=== PATIENT | female | born 1940 | race Caucasian/White ===

== ENCOUNTER 2017-03-13 08:19 | Inpatient (IN) ==
--- NOTE | 2017-03-12 20:50 | Discharge Summary ---
<Yamel Bishop - Last Filed: 03/12/17 20:48> Date of Encounter: 03/12/17 - Discharge Diagnosis (1) Arthritis of left knee Priority: Primary Status: Chronic (2) Status cardiac pacemaker Priority: Secondary Status: Chronic (3) History of atrial fibrillation Priority: Secondary Status: Chronic (4) GERD (gastroesophageal reflux disease) Priority: Secondary Status: Chronic Qualifiers: Esophagitis presence: esophagitis presence not specified Qualified Code(s) : K21.9 - Gastro-esophageal reflux disease without esophagitis (5) Hemochromatosis Priority: Secondary Status: Chronic Qualifiers: Hemochromatosis type: unspecified Qualified Code(s): E83.119 - Hemochromatosis, unspecified (6) Current use of petroleum terminal plant operator anticoagulation Priority: Secondary Status: Chronic Comments: Patient takes Eliquis - Discharge Medications Home Medications: Apixaban [Eliquis] 5 mg PO BID 09/12/15 [History] Glucosamine HCl/Chondr Jones A Na [[facility] Glucosamine-Chondr Tablet] 1 each PO DAILY 09/12/15 [History] Omeprazole [PriLOSEC] 20 mg PO DAILY 09/12/15 [History] OxyCODONE Immed Rel [Roxicodone 5 MG] 5 mg PO Q6HR PRN 7 Days #28 tablet [Rx] Acetaminophen [Tylenol] 650 mg PO Q6HR PRN 03/13/17 [History] Allergies/Adverse Reactions: 3 Allergy/AdvReac Type Severity Reaction Status Date / Time No Known Allergies Allergy Verified 03/13/17 09:13 Primary care physician: Stephen Tovar - Patient Status Disposition: Transfer Inpatient Rehab Fac Condition: [facility] - Discharge Instructions Follow Up With: Yamel Bishop PAC [Physician Individual Pension Adviser] - 03/21/17 10:00 am (& also, , March 28, 2017 at 1:30 PM) Luis Alberto Cedeño MD [Partnered Physician] - 04/10/17 5:50 pm Jayleen Garrett MD [Partnered Physician] - 11/19/17 8:00 am Stephen Tovar DO [Primary Care Provider] - 05/29/17 10:30 am - Hospital Course Hospital course: Ms. Irizarry is a 77 year old female - Time Spent with Patient Total time spent providing and/or coordinating discharge services: <Luis Alberto Cedeño - Last Filed: 03/16/17 08:06> Date of Encounter: 03/16/17 Time of Encounter: 08:06 - Discharge Diagnosis (1) Status post total left knee replacement Priority: Primary Status: Acute (2) Obesity (BMI 30.0-34.9) Priority: Secondary Status: Chronic (3) Arthritis of left knee Priority: Primary Status: Chronic (4) Status cardiac pacemaker Priority: Secondary Status: Chronic (5) History of atrial fibrillation Priority: Secondary Status: Chronic (6) GERD (gastroesophageal reflux disease) Priority: Secondary Status: Chronic Qualifiers: Esophagitis presence: esophagitis presence not specified Qualified Code(s) : K21.9 - Gastro-esophageal reflux disease without esophagitis (7) Hemochromatosis Priority: Secondary Status: Chronic Qualifiers: Hemochromatosis type: unspecified Qualified Code(s): E83.119 - Hemochromatosis, unspecified (8) Current use of long-term anticoagulation Priority: Secondary Status: Chronic Primary care physician: Stephen Tovar - Patient Status Functional capacity at discharge: uses cane/walker Overall status at discharge: patient is progressing back to baseline - Hospital Course Hospital course: Ms. Irizarry is a 77 year old female Status post left total knee replacement The patient had an uneventful postoperative course. They received antibiotics and physical therapy and were discharged in stable condition. There will follow -up in the office in 2 weeks. - Time Spent with Patient Total time spent providing and/or coordinating discharge services:
[2017-03-13] MEDS ORDERED: CeFAZolin Syr 2,000MG/20 ML 2,000 MG/20 ML SYRINGE IVPB ONE (09:29)
[2017-03-13] MEDS ORDERED: Ringers Solution, Lactated 500 ML IVC SCH (09:30)
--- NOTE | 2017-03-13 09:53 | Anesthesia Evaluation PreOp ---
Date of Encounter: 03/13/17 Time of Encounter: 09:50 - Past History Planned Operation: Left total knee arthroplasty robotic Cardiac History: Arrhythmia (A fib), Pacemaker/ICD (pacemaker only - resynchronization therapy - interrogated today) Pulmonary History: Denies Any Significant HX ASSISTANT CORPORATE SECRETARY History: Denies Any Significant HX Other Medical History: Other (hemochromatosis - gets occassional phlebotomy) Anesthesia History: No Prior Anesthetic Complications Alcohol Use: none Drug use: none Medications and Allergies Apixaban [Eliquis] 5 mg PO BID 09/12/15 [History] Glucosamine HCl/Chondr Jones A Na [[facility] Glucosamine-Chondr Tablet] 1 each PO DAILY 09/12/15 [History] Omeprazole [PriLOSEC] 20 mg PO DAILY 09/12/15 [History] OxyCODONE Immed Rel [Roxicodone 5 MG] 5 mg PO Q6HR PRN 7 Days #28 tablet [Rx] Acetaminophen [Tylenol] 650 mg PO Q6HR PRN 03/13/17 [History] 3 Allergy/AdvReac Type Severity Reaction Status Date / Time No Known Allergies Allergy Verified 03/13/17 09:13 - Meds/Allergy Pre-op Review Medications Reviewed: Yes Allergies Reviewed: Yes Beta Blockers on Current Med List: No Anesthesia Results - Labs Laboratory Tests 02/19/17 02/19/17 02/19/17 09:24 09:24 09:24 WBC 7.0 Hgb 13.6 Hct 41.6 Plt Count 214 PT 13.8 H INR 1.3 APTT 31.9 Sodium 142 Potassium 3.6 Chloride 110 H Carbon Dioxide 26 BUN 11 Creatinine 0.69 Est GFR ( Amer) > 60 Est GFR (Non-Af Amer) > 60 BUN/Creatinine Ratio 16 Patient's last dose of Eliquis was Saturday 7 am - Imaging EKG: report reviewed, image reviewed (ELECTRONIC VENTRICULAR PACEMAKER) Additional studies: TTE: Indications: Hereditary hemochromatosis Impressions: Normal LV chamber size, wall thickness, and systolic function. LVEF 55-60%. Indeterminate diastolic function. Normal right ventricular structure and function. A device lead was visualized in the right atrium and right ventricle. Severely dilated left atrium. Severely dilated right atrium. Mild mitral regurgitation. Mild tricuspid regurgitation. No evidence of pulmonary hypertension. Anesthesia Exam Last Vital Signs Temp 97.7 F 03/13/17 08:58 Pulse 70 03/13/17 08:58 Resp 18 03/13/17 08:58 BP 143/81 03/13/17 08:58 Pulse Ox 97 03/13/17 08:58 Weight: 82 kg NPO (# of Hours): > 8 hrs - HEENT Pupil (Motor): Pupils equal, EOMI Mallampati: II Teeth: Normal Oral Opening: Greater than 3 - ASSISTANT CORPORATE SECRETARY LOC: Oriented ASSISTANT CORPORATE SECRETARY Motor: Normal RUE, Normal LUE, Normal RLE, Normal LLE, Normal Face - Cardiac Rhythm: Regular Murmur: None - Pulmonary Breath Sounds: bilateral Clear Respiratory Effort: Symmetrical Anesthesia Assess/Plan ASA Score: 2 Modified Valentin Scale for Level of Consciousness: Cooperative, oriented, and tranquil Anesthetic Plan: General Monitoring Plan: Standard Monitors Recovery Plan: PACU
--- NOTE | 2017-03-13 11:36 | History & Physical Report ---
Date of Encounter: 03/13/17 Time of Encounter: 11:36 24 Hour HP Update - Instructions Instructions: If the History and Physical is less than 30 days old and was completed prior to A.M. admission and or procedure and has NOT been updated on calendar day of procedure please complete this update prior to performing procedure. - Update Patient reports changes in Medical Condition: No Changes in examination, assessment, or condition: No Changes in Medication: No Preop tests/diagnostics Reviewed: Yes Surgery Remains Indicated: Yes Consent for Planned Operative Procedure(s) Verified: Yes - Pre-Operative Checklist Preoperative Checklist Indicated: No Prophylactic Antibiotic Ordered: Yes Is VTE Prophylaxis Indicated?: Yes
[2017-03-13] MEDS ORDERED: *HR* Labetalol 20 MG/4 ML SYRINGE IVP PRN (12:07)
[2017-03-13] MEDS ORDERED: *HR* Promethazine 25 MG/ML VIAL IVP PRN ×2 (12:07→18:50)
[2017-03-13] MEDS ORDERED: Lidocaine -MPF 2% 2 ML VIAL ONE (12:09)
[2017-03-13] MEDS ORDERED: *HR* Propofol 200 MG/20 ML VIAL IVP ONE (12:09)
[2017-03-13] MEDS ORDERED: *HR* FentaNYL (PF) 100 MCG/2 ML VIAL ONE (12:09)
[2017-03-13] MEDS ORDERED: Bupivacaine/Clonidine Syringe 1 EACH SYRINGE ONE (13:19)
[2017-03-13] MEDS ORDERED: ROPIVACAINE HCL/PF 0.5% 30 ML VIAL ONE (13:19)
[2017-03-13] MEDS ORDERED: Acetaminophen IV 1,000 MG/100 ML INFUS..BTL ONE (13:19)
[2017-03-13] MEDS ORDERED: Ethanol\\Acetic Acid\\Na Ace\\Ben 1,000 ML IRRIG.SOLN IR ONE (13:20)
--- NOTE | 2017-03-13 13:38 | Anesthesia Procedures ---
Date of Encounter: 03/13/17 Time of Encounter: 13:25 Procedures: Anesthesia - Nerve Block Procedure Date: 03/13/17 Time: 13:25 Allergies/Adv Reactions: NKA Pre-op Diagnosis: Left knee arthroscopy Surgical Procedure: Left total knee arthroplasty Checklist: Correct Patient Identifier, Correct procedure, History checked Correct side: Left Blood Thinner: Yes Monitor Applied: EKG, BP, Pulse Oximetry Supplemental Oxygen via Nasal Cannula (L/min): 2 Sedation: Fentanyl (mcg): 100 Indication: Post Op Analgesia Pre-op Neuro Deficits: No Block Type: Femoral, Other (IPAC) Catheter placed: No Sterile Technique: Yes Ultrasound used: Yes Anatomy identified: Yes Visual spread of Local: Yes Neuro Stimulation: Yes Nerve Stimulator Range: 0.2 - 0.4 mA Blood on Needle Aspiration: No Smooth Injection of Local: Yes Pain with Injection of Local: No Prep: Chlorhexadine Needle: 22 x 50 mm Stimuplex, 21 x 100 mm Stimuplex Local: 0.25% Bupivicaine w/Clonidine 20 mcg/cc, Ropivacaine (0.5% 30ml) Volume (cc): 50ml Number of Attempts: 1 Complications: None/effective block Vitals: Vital Signs Temperature 97.7 F 03/13/17 08:58 Pulse Rate 70 03/13/17 08:58 Respiratory Rate 18 03/13/17 08:58 Blood Pressure 143/81 03/13/17 08:58 O2 Sat by Pulse Oximetry 97 03/13/17 08:58 Temperature 97.7 F 03/13/17 08:58 Pulse Rate 70 03/13/17 12:45 Respiratory Rate 16 03/13/17 12:45 Blood Pressure 155/86 03/13/17 12:45 O2 Sat by Pulse Oximetry 100 03/13/17 12:45
[2017-03-13] MEDS ORDERED: Dexamethasone 4 MG/ML VIAL ONE (14:08)
[2017-03-13] MEDS ORDERED: Ondansetron 4 MG/2 ML VIAL ONE (14:18)
[2017-03-13] MEDS ORDERED: *HR* HYDROmorphone 2 MG/ML SYRINGE ONE (14:29)
[2017-03-13] MEDS ORDERED: Ketorolac 30 MG/ML VIAL ONE (14:46)
--- NOTE | 2017-03-13 14:53 | Orthopedic Operative Note ---
Date of procedure: 03/13/17 Pre-op diagnosis: Left knee arthritis Post-op diagnosis: same Procedure: Procedure: Left robotic-assisted Total knee replacement Estimated blood loss: 300 cc Hardware: Metal and polyethylene replacement. Urvashi Femur: 2 Tibia: 3 PS insert: 9 Patella: 36 Exam Under anesthesia: 2 degree flexion contracture and 3 degrees of varus as calculated by the robot full flexion and no instability Procedural Notes: Patient noted to have grade 4 changes trochlear groove and medial compartment. Operative procedure: The patient was brought to the operating room and placed on the operating room table. After general anesthesia was administered the operative knee was examined. Findings were noted in the exam under anesthesia. The operative extremity was prepped and draped in sterile surgical fashion. The patient received IV antibiotics prior to skin incision. A standard midline incision was made centered over the patella. The incision was made through the skin and subcutaneous tissue. A medial parapatellar tendon approach was performed. Care was taken to preserve tissue along the medial aspect of the patella. And to protect the patella tendon. The deep MCL was released off the medial tibia. The infra patella fat pad was excised. The patella was everted and cut was made at the level of the insertion of the quadriceps and patella tendon. The patella was sized to a 36 the guide was seated and the lug holes are drilled. Knee was brought into flexion. Patient noted to have Steinmann pins were placed in the tibia and the femur for the tibial and femoral arrays respectively. Checkpoints were also placed in the tibia and the femur for calculation purposes. The knee including the femur and the tibial registered. Osteophytes, ACL and PCL were excised at this point. Extension and flexion were assessed with a valgus stress components were adjusted on the computer to balance the knee. Femoral cuts were made first with robotic assistance, these included the anterior cut posterior cuts chamfer cuts. Tibial cut was then performed with robotic assistance as well. Bone fragments were removed, as well as the medial and lateral meniscus. The size 2 femoral guide was seated box cut was made lug holes are drilled. The size 3 tibial tray was seated and prepared with the fin cutter. Trial reduction with the 9 PS Earnestine revealed extension 0 degree and 2 degrees varus and full flexion. No varus valgus instability. Trial reduction revealed excellent patella tracking. All trial components were removed all bony surfaces were irrigated. Tibias press-fit followed by the femur PS Earnestine size 9 was seated and secured patella. Patient had similar findings for motion and stability. The knee was closed by the PA. The knee was then irrigated out with 2 L of pulse irrigation. The extensor mechanism was closed with #2 FiberWire suture and #2 PDS suture. The subcutaneous tissue was then irrigated and closed deep with #1 PDS suture superficially with 0 PDS suture and skin was closed with zip tie The patient was then placed in a sterile dressing and a postoperative brace extubated and transferred to recovery room in stable condition. Anesthesia: GETA Surgeon: Luis Alberto Cedeño Was there an materials assistant present: No Estimated blood loss (cc): 300 Condition: stable Disposition: PACU
[2017-03-13] MEDS: *HR* HYDROmorphone (PF) 1 MG/ML SYRINGE IVP PRN ×4 (15:30→15:45)
[2017-03-13] MEDS ORDERED: *HR* HYDROmorphone (PF) 1 MG/ML SYRINGE ONE (15:31)
[2017-03-13 15:47] LABS: Hemoglobin 12.7 g/dL (11.5-15.4)
--- NOTE | 2017-03-13 15:58 | Anesthesia Evaluation Post Op ---
Date of Encounter: 03/13/17 Time of Encounter: 15:57 - Vital Signs Vital Signs: Last Vital Signs Temp 97.2 F L 03/13/17 15:28 Pulse 70 03/13/17 15:48 Resp 16 03/13/17 15:48 BP 122/69 03/13/17 15:48 Pulse Ox 93 03/13/17 15:48 - Lungs Lungs: Clear Ascult./Percussion - Airway Airway: Non-obstructed - Cardiovascular Regular Rate - Mental Status Mental Status: Alert & Oriented, Answers Appropriately - Pain Pain Scale: 4 - Nausea Vomiting Nausea Vomiting: Not Present - Hydration Hydration: NPO - Discharge PostOp Status: Transfer Patient to floor
[2017-03-13] MEDS ORDERED: *HR* HYDROmorphone (PF) 1 MG/ML SYRINGE IVP PRN (16:15)
[2017-03-13] MEDS ORDERED: Ringers Solution, Lactated 1,000 ML IVC SCH (16:15)
[2017-03-13] MEDS ORDERED: Sennosides 8.6 MG TABLET PO PRN (16:15)
[2017-03-13] MEDS ORDERED: *HR* OxyCODONE Immed Rel 5 MG TABLET PO PRN (16:15)
[2017-03-13] MEDS ORDERED: CeFAZolin Premix DUPLEX 2,000 MG/50 ML BAG IVPB SCH (16:15)
[2017-03-13] MEDS ORDERED: MOM Conc 10 ML UD.LIQ PO PRN (16:15)
[2017-03-13] MEDS ORDERED: Temazepam 15 MG CAPSULE PO PRN (16:15)
[2017-03-13] MEDS ORDERED: Naloxone 0.4 MG/ML INJ IVP PRN (16:15)
[2017-03-13] MEDS ORDERED: Ondansetron 4 MG/2 ML VIAL IVP PRN (16:15)
[2017-03-13] MEDS: CeFAZolin Premix DUPLEX 2,000 MG/50 ML BAG IVPB SCH (22:20)
[2017-03-13] MEDS: Apixaban 5 MG TABLET PO SCH (22:20)
[2017-03-14 04:48] LABS: Hematocrit 36.6 % (35.3-44.9); Hemoglobin 12.2 g/dL (11.5-15.4)
[2017-03-14 04:59] LABS: BUN/Creatinine Ratio 20 (6-26); Blood Urea Nitrogen 11 mg/dL (8-23); Calcium 8.6 mg/dL (8.6-10.3); Carbon Dioxide 25 mEq/L (23-29); Chloride 108 mEq/L (98-107); Glucose 144 mg/dL (70-105); Osmolality,Calculated 288 (280-300); Potassium 4.2 mEq/L (3.5-5.1); Sodium 138 mEq/L (136-145); eGFR For African Americans > 60 (> 60); eGFR For Non-African Americans > 60 (> 60)
[2017-03-14] MEDS: *HR* OxyCODONE Immed Rel 5 MG TABLET PO PRN ×3 (05:19→19:48)
[2017-03-14] MEDS: CeFAZolin Premix DUPLEX 2,000 MG/50 ML BAG IVPB SCH (05:20)
--- NOTE | 2017-03-14 08:57 | Orthopedics Progress Note ---
Date of Encounter: 03/14/17 Time of Encounter: 08:57 - Assessment and Plan (1) Status post total left knee replacement Current Visit: Yes Status: Acute (2) Obesity (BMI 30.0-34.9) Current Visit: Yes Status: Chronic (3) Arthritis of left knee Current Visit: No Status: Chronic (4) Status cardiac pacemaker Current Visit: No Status: Chronic (5) History of atrial fibrillation Current Visit: No Status: Chronic (6) GERD (gastroesophageal reflux disease) Current Visit: No Status: Chronic Qualifiers: Esophagitis presence: esophagitis presence not specified Qualified Code(s) : K21.9 - Gastro-esophageal reflux disease without esophagitis (7) Hemochromatosis Current Visit: No Status: Chronic Qualifiers: Hemochromatosis type: unspecified Qualified Code(s): E83.119 - Hemochromatosis, unspecified (8) Current use of jail anticoagulation Current Visit: No Status: Chronic Subjective Interval history: Patient was seen this morning doing well without complaints. Afebrile vital signs stable. Operative extremity: Neurovascularly intact Dressing clean dry and intact Calves nontender Assessment and plan: Continue with postoperative care Hematocrit 36 Objective Vital signs: Vital Signs Temp Pulse Resp BP Pulse Ox 03/14/17 07:44 97.4 F L 68 15 110/66 98 03/14/17 05:38 97.8 F 88 16 132/86 95 03/14/17 00:22 97.7 F 65 15 112/78 97 03/13/17 21:26 94.2 F L 70 19 138/80 97 03/13/17 21:00 98.3 F 68 16 120/72 97 03/13/17 17:34 70 16 111/74 98 03/13/17 17:09 81 12 130/79 96 03/13/17 16:27 97.5 F L 70 14 138/80 97 03/13/17 16:18 97.3 F L 70 16 139/66 94 03/13/17 16:08 70 16 134/62 93 03/13/17 15:58 97.2 F L 70 16 124/63 96 03/13/17 15:48 70 16 122/69 93 03/13/17 15:38 70 16 121/66 93 03/13/17 15:28 97.2 F L 70 20 107/76 92 03/13/17 13:49 70 16 155/86 96 03/13/17 12:45 70 16 155/86 100 03/13/17 08:58 97.7 F 70 18 143/81 97 Intake and Output 03/13/17 03/14/17 03/14/17 23:59 07:59 15:59 Intake Total 50 / 50 Output Total 200 / 200 Balance 50 / 50 -200 / -200 Intake: IV Fluids 50 / 50 Ancef Premix DUPLEX 2,000 mg In 50 / 50 50 ml @ 100 mls/hr IVPB Q8H [facility] Rx#:[id number] Oral 0 / 0 Output: Urine 200 / 200 - Labs CBC & BMP: 03/14/17 04:27 03/14/17 04:27 Labs: Abnormal lab results Chloride 108 mEq/L (98-107) H 03/14/17 04:27 Creatinine 0.54 mg/dL (0.60-1.20) L 03/14/17 04:27 Glucose 144 mg/dL (70-105) H 03/14/17 04:27 - VTE Documentation of Mechanical Device: Venous foot pump, device Consult Discharge Plan - Plan Referrals: Stephen Tovar DO [Primary Care Provider] -
[2017-03-14] MEDS: Apixaban 5 MG TABLET PO SCH ×2 (09:18→21:40)
[2017-03-15] MEDS: *HR* OxyCODONE Immed Rel 5 MG TABLET PO PRN ×2 (05:44→10:45)
--- NOTE | 2017-03-15 06:36 | Orthopedics Progress Note ---
Date of Encounter: 03/15/17 Time of Encounter: 06:35 - Assessment and Plan (1) Status post total left knee replacement Current Visit: Yes Status: Acute (2) Obesity (BMI 30.0-34.9) Current Visit: Yes Status: Chronic (3) Arthritis of left knee Current Visit: No Status: Chronic (4) Status cardiac pacemaker Current Visit: No Status: Chronic (5) History of atrial fibrillation Current Visit: No Status: Chronic (6) GERD (gastroesophageal reflux disease) Current Visit: No Status: Chronic Qualifiers: Esophagitis presence: esophagitis presence not specified Qualified Code(s) : K21.9 - Gastro-esophageal reflux disease without esophagitis (7) Hemochromatosis Current Visit: No Status: Chronic Qualifiers: Hemochromatosis type: unspecified Qualified Code(s): E83.119 - Hemochromatosis, unspecified (8) Current use of prison anticoagulation Current Visit: No Status: Chronic Subjective Interval history: Patient was seen this morning doing well without complaints. Afebrile vital signs stable. Operative extremity: Neurovascularly intact Dressing clean dry and intact Calves nontender Assessment and plan: Continue with postoperative care Potential for discharge today Objective Vital signs: Vital Signs Temp Pulse Resp BP Pulse Ox 03/15/17 04:48 97.8 F 71 14 136/66 98 03/15/17 00:36 97.8 F 70 16 133/76 97 03/14/17 20:34 97.6 F 70 16 149/77 98 03/14/17 15:01 98.0 F 71 15 115/72 98 03/14/17 11:36 97.4 F L 70 14 118/73 99 03/14/17 07:44 97.4 F L 68 15 110/66 98 Intake and Output 03/14/17 03/14/17 03/15/17 15:59 23:59 07:59 Intake Total 240 / 240 0 / 0 Output Total 275 / 275 300 / 300 Balance -35 / -35 -300 / -300 Intake: Oral 240 / 240 0 / 0 Output: Urine 275 / 275 300 / 300 Other: Meal Breakfast Percent of Meal Consumed 30% # Voids 1 Weight 82.3 kg Patient Weight 03/15/17 23:59 Weight 82.3 kg - Labs CBC & BMP: 03/14/17 04:27 03/14/17 04:27 Labs: Abnormal lab results Chloride 108 mEq/L (98-107) H 03/14/17 04:27 Creatinine 0.54 mg/dL (0.60-1.20) L 03/14/17 04:27 Glucose 144 mg/dL (70-105) H 03/14/17 04:27 - VTE Documentation of Mechanical Device: Venous foot pump, device Consult Discharge Plan - Plan Referrals: Yamel Bishop, PAC [Physician Craps Dealer] - 03/21/17 10:00 am (& also, , March 28, 2017 at 1:30 PM) Luis Alberto Cedeño MD [Partnered Physician] - 04/10/17 5:50 pm Jayleen Garrett MD [Partnered Physician] - 11/19/17 8:00 am Stephen Tovar DO [Primary Care Provider] - 05/29/17 10:30 am
[2017-03-15 06:39] LABS: Hematocrit 36.3 % (35.3-44.9)
[2017-03-15 06:57] LABS: BUN/Creatinine Ratio 25 (6-26); Blood Urea Nitrogen 17 mg/dL (8-23); Calcium 8.7 mg/dL (8.6-10.3); Carbon Dioxide 28 mEq/L (23-29); Chloride 106 mEq/L (98-107); Glucose 120 mg/dL (70-105); Osmolality,Calculated 291 (280-300); Potassium 3.8 mEq/L (3.5-5.1); Sodium 139 mEq/L (136-145); eGFR For African Americans > 60 (> 60); eGFR For Non-African Americans > 60 (> 60)
[2017-03-15] MEDS: Apixaban 5 MG TABLET PO SCH ×2 (08:56→20:52)
--- NOTE | 2017-03-15 17:09 | Event Note ---
Date of Encounter: 03/15/17 Time of Encounter: 13:10 PCR- POD#2 left TKR 03/13/17 PCR - Patient seen at bedside. Pain control: Adequate Participating in PT. All questions and concerns addressed. Educated on use of incentive spirometer, ambulation, and hydration. Patient educated on post-operative restrictions and care. Addressed: see above. D/C plan:. accepted at [facility]
--- NOTE | 2017-03-15 17:11 | Physician Discharge Referral ---
ExtendedCare Referral Info Transfer To: [facility] Provider in Charge: Dr. Cedeño - Diagnosis (1) Arthritis of left knee Priority: Secondary Status: Chronic (2) Status cardiac pacemaker Priority: Secondary Status: Chronic (3) History of atrial fibrillation Priority: Secondary Status: Chronic (4) GERD (gastroesophageal reflux disease) Priority: Secondary Status: Chronic (5) Hemochromatosis Priority: Secondary Status: Chronic (6) Current use of nursing home anticoagulation Priority: Secondary Status: Chronic (7) Status post total left knee replacement Priority: Primary Status: Acute (8) Obesity (BMI 30.0-34.9) Priority: Secondary Status: Chronic Expected Duration of Placement: <30 days Prognosis: Good Aware of Diagnosis: Patient Aware of Prognosis: Patient - Transfer Medications Home Medications: Apixaban [Eliquis] 5 mg PO BID 09/12/15 [History] Glucosamine HCl/Chondr Jones A Na [[facility] Glucosamine-Chondr Tablet] 1 each PO DAILY 09/12/15 [History] Omeprazole [PriLOSEC] 20 mg PO DAILY 09/12/15 [History] OxyCODONE Immed Rel [Roxicodone 5 MG] 5 mg PO Q6HR PRN 7 Days #28 tablet [Rx] Acetaminophen [Tylenol] 650 mg PO Q6HR PRN 03/13/17 [History] Allergies/Adverse Reactions: 3 Allergy/AdvReac Type Severity Reaction Status Date / Time No Known Allergies Allergy Verified 03/13/17 09:13 - Respiratory Orders Smoking Cessation: Smoking cessation has been advised. For more information, call the [place] Tobacco Quit Line at 0-891-NAIW-NOW. - Ancillary Orders May use pressure relief devices daily prn, May go on [place] w/family/respon green party w /meds at nurse discretion PRN, May consult with Dentist, Policy Value Calculator, Rubbish Collection Supervisor PRN - Mobility Orders Chair, Ambulate - Rehabiliation Orders Rehab Potential: Good Rehab Orders: Evaluation for Physical Therapy, Evaluation for Occupational Therapy Other: Total Knee replacement Precautions x 6 weeks Apply cold therapy wrap 3-6x/day for 20 minutes at a time. Encourage ambulation throughout the day and incentive spirometer 10x/hour. Elevate affected extremity above heart as tolerated. Brace: Wear knee immobilizer at night x 2 weeks. - Treatments Skin tear care topically daily PRN per policy List/Other: Opsite placed. Keep dressing intact until first follow up appointment. If > 50% saturated, notify office, remove dressing and place appropriate dressing back in place. Dressing is water resistant, not water-proof. OK to shower, but do not get dressing wet. - Diet Orders Regular CERTIFICATION: I certify that the transfer of the above named patient to an Extended Care Facility is necessary for the continuing treatment of the diagnosis listed. The above information is true and accurate reflection of patient's current condition. Confidential - Redisclosure prohibited without a patient's written consent.
[2017-03-16] MEDS: Apixaban 5 MG TABLET PO SCH (07:26)
--- NOTE | 2017-03-16 08:07 | Orthopedics Progress Note ---
Date of Encounter: 03/16/17 Time of Encounter: 08:07 - Assessment and Plan (1) Status post total left knee replacement Current Visit: Yes Status: Acute (2) Obesity (BMI 30.0-34.9) Current Visit: Yes Status: Chronic (3) Arthritis of left knee Current Visit: No Status: Chronic (4) Status cardiac pacemaker Current Visit: No Status: Chronic (5) History of atrial fibrillation Current Visit: No Status: Chronic (6) GERD (gastroesophageal reflux disease) Current Visit: No Status: Chronic Qualifiers: Esophagitis presence: esophagitis presence not specified Qualified Code(s) : K21.9 - Gastro-esophageal reflux disease without esophagitis (7) Hemochromatosis Current Visit: No Status: Chronic Qualifiers: Hemochromatosis type: unspecified Qualified Code(s): E83.119 - Hemochromatosis, unspecified (8) Current use of nursing home anticoagulation Current Visit: No Status: Chronic Subjective Interval history: Patient was seen this morning doing well without complaints. Afebrile vital signs stable. Operative extremity: Neurovascularly intact Dressing clean dry and intact Calves nontender Assessment and plan: Continue with postoperative care discharge today Objective Vital signs: Vital Signs Temp Pulse Resp BP Pulse Ox 03/16/17 07:38 96 03/16/17 06:33 98.4 F 63 18 134/68 96 03/15/17 23:50 98.2 F 69 18 129/71 95 03/15/17 19:13 98.1 F 70 17 147/68 99 03/15/17 15:36 97.9 F 71 15 154/82 96 03/15/17 11:23 98.8 F 66 16 154/81 96 Intake and Output 03/15/17 03/16/17 03/16/17 23:59 07:59 15:59 Intake Total 640 / 640 5 / 5 Output Total 450 / 450 Balance 640 / 640 -445 / -445 Intake: Oral 640 / 640 5 / 5 Output: Urine 450 / 450 Other: Percent of Meal Consumed 65% # Voids 2 - Labs CBC & BMP: 03/15/17 06:13 03/15/17 06:13 Labs: Abnormal lab results Glucose 120 mg/dL (70-105) H 03/15/17 06:13 - VTE Documentation of Mechanical Device: Venous foot pump, device Consult Discharge Plan - Plan Referrals: Yamel Bishop PAC [Physician Hr Business Partner Consultant] - 03/21/17 10:00 am (& also, March at 1:30 PM) Luis Alberto Cedeño MD [Partnered Physician] - 04/10/17 5:50 pm Jayleen Garrett MD [Partnered Physician] - 11/19/17 8:00 am Stephen Tovar DO [Primary Care Provider] - 05/29/17 10:30 am
[2017-03-17 06:45] VITALS: BP 132/77
--- NOTE | 2017-03-19 09:01 | Physician Discharge Referral ---
Home Health/Hosp Referral Info Transfer to: Home Health Attending Provider: Dr. Luis Alberto Cedeño - Diagnosis (1) Arthritis of left knee Priority: Primary Status: Chronic (2) Status cardiac pacemaker Priority: Secondary Status: Chronic (3) History of atrial fibrillation Priority: Secondary Status: Chronic (4) GERD (gastroesophageal reflux disease) Priority: Secondary Status: Chronic (5) Hemochromatosis Priority: Secondary Status: Chronic (6) Current use of long-term anticoagulation Priority: Secondary Status: Chronic (7) Status post total left knee replacement Priority: Primary Status: Acute - Respiratory Orders Smoking Cessation: Smoking cessation has been advised. For more information, call the [place] Tobacco Quit Line at 1-236-XJAG-NOW. - Dressing/Wound Care Site: Left knee Type of Dressing/Treatments w/Frequency: Opsite placed. Keep dressing intact until first follow up appointment. If > 50% saturated, notify office, remove dressing and place appropriate dressing back in place. Leave Zipline intact. Opsite dressing is water resistant, not water- proof. OK to shower, but do not get dressing wet. - Diet/Nutrition Diet/Nutrition Orders: Regular - Activity Activity Orders: Up ad norbert, Ambulate, Chair, Walker Activity: List: Total Knee replacement Precautions x 6 weeks Apply cold therapy wrap 3-6x/day for 20 minutes at a time. Encourage ambulation throughout the day and incentive spirometer 10x/hour. Elevate affected extremity above heart as tolerated. Brace: Wear knee immobilizer at night x 2 weeks. - Services Needed Following services are medically necessary services: Nursing, Home Health Aide, Physical Therapy, Occupational Therapy - Transfer Medications Home Medications: Apixaban [Eliquis] 5 mg PO BID 09/12/15 [History] Glucosamine HCl/Chondr Jones A Na [[facility] Glucosamine-Chondr Tablet] 1 each PO DAILY 09/12/15 [History] Omeprazole [PriLOSEC] 20 mg PO DAILY 09/12/15 [History] OxyCODONE Immed Rel [Roxicodone 5 MG] 5 mg PO Q6HR PRN 7 Days #28 tablet [Rx] Acetaminophen [Tylenol] 650 mg PO Q6HR PRN 03/13/17 [History] Allergies/Adverse Reactions: 3 Allergy/AdvReac Type Severity Reaction Status Date / Time No Known Allergies Allergy Verified 03/13/17 09:13 Certification: Further, I certify that my clinical findings support that this patient is homebound (i.e. absences from home require considerable and taxing effort and are for medical reasons or caodaism services or infrequently or short duration when for other reasons) because: Homebound Reason: Post-surgery restriction and or conditions limit ability to leave home Attestation: My signature below is to certify that this patient is under my care and that I, or nurse practitioner, or a physician insurance legal assistant working with me, has a face-to- face encounter with this patient.
== END 2017-03-16 11:00 | disposition home health service (06) | DRG 470 ==
LOC: SAMDAY 08:19 → 3NENU 16:15
PROVIDERS: ADMIT Orthopaedic Surgery; ATTEND Orthopaedic Surgery

== ENCOUNTER 2018-04-21 13:23 | Inpatient (IN) ==
--- NOTE | 2018-04-21 08:26 | Discharge Summary ---
Orders not resulted at time of discharge: Pending orders 04/21/18 00:01 XR knee LT 1-2V [XR] Routine H/H [Hemoglobin and Hematocrit] [HEME] Routine Date of Encounter: 04/23/18 Time of Encounter: 12:00 - Discharge Diagnosis (1) Status post total left knee replacement Priority: Primary Status: Acute (2) Aseptic loosening of prosthetic knee Priority: Primary Status: Acute Qualifiers: Encounter type: subsequent encounter Qualified Code(s): T84.038D - Mechanical loosening of other internal prosthetic joint, subsequent encounter; Z96.659 - Presence of unspecified artificial knee joint (3) Current use of terminal gauger supervisor anticoagulation Priority: Secondary Status: Chronic (4) GERD (gastroesophageal reflux disease) Priority: Secondary Status: Chronic Qualifiers: Esophagitis presence: esophagitis presence not specified Qualified Code(s): K21.9 - Gastro-esophageal reflux disease without esophagitis (5) Hemochromatosis Priority: Secondary Status: Chronic Qualifiers: Hemochromatosis type: unspecified Qualified Code(s): E83.119 - Hemochromatosis, unspecified (6) History of atrial fibrillation Priority: Secondary Status: Chronic (7) Status cardiac pacemaker Priority: Secondary Status: Chronic (8) Obesity (BMI 30.0-34.9) Priority: Secondary Status: Chronic - Hospital Course Hospital course: Ms. Irizarry is a 78 year old female status post left TKR revision 04/21/18 with medical history of Afib with pacemaker on chronic anticoagulaton, hemochromatosis, GERD, obesity. She participated in therapy and had uneventful hospital course. Stable for discharge. Patient seen at bedside, without complaints. A&O x 3 Afebrile, vital signs stable. Dressings had no further drainage. Dressing to be changed before discharge. Labs reviewed. H/H - 12.0/35.4 stable, asymptomatic Pain control: adequate with tylenol only. She has been receiving ofirmev up until now. Will switch to PO tylenol, next dose due at 2:30 if pain still well controlled after that then will be ok to DC. Participating in PT. All questions and concerns addressed. Educated on use of incentive spirometer. Encouraged ambulation and proper hydration. Patient educated on post-operative restrictions and post-operative care. Assessment and plan: Continue with postoperative care Discharge plan: home today with outpatient therapy. - Time Spent with Patient Total time spent providing and/or coordinating discharge services: - Discharge Medications Home Medications: Apixaban [Eliquis] 5 mg PO BID 09/12/15 [History] Glucosamine HCl/Chondr Jones A Na [[facility] Glucosamine-Chondr Tablet] 1 each PO DAILY 09/12/15 [History] Omeprazole [PriLOSEC] 20 mg PO DAILY 09/12/15 [History] Acetaminophen [Tylenol] 650 mg PO Q6HR PRN 03/13/17 [History] Docusate [Colace] 100 mg PO BID 10 Days #20 capsule 04/21/18 [Rx] OxyCODONE Immed Rel [Roxicodone 5 MG] 5 mg PO Q6HR PRN 7 Days #28 tablet 04/21/18 [Rx] Allergies/Adverse Reactions: Allergy/AdvReac Type Severity Reaction Status Date / Time No Known Allergies Allergy Verified 04/21/18 14:16 Date of admission: 04/21/18 Primary care physician: Stephen Tovar Discharging clinician: Luis Alberto Cedeño Anticipated date of discharge: 04/23/18 Labs on day of discharge: Short CBC 04/23/18 Range/Units 04:55 Hgb 12.0 (11.5-15.4) g/dL Hct 35.4 (35.3-44.9) % BMP 04/23/18 Range/Units 04:55 Sodium 139 (136-145) mEq/L Potassium 3.9 (3.5-5.1) mEq/L Chloride 109 H (98-107) mEq/L Carbon Dioxide 23 (23-29) mEq/L BUN 17 (8-23) mg/dL Creatinine 0.58 L (0.60-1.20) mg/dL Glucose 113 H (70-105) mg/dL Calcium 8.9 (8.6-10.3) mg/dL - Impressions Knee X-Ray 04/21/18 00:01 IMPRESSION: 1. Revision of the left total knee arthroplasty without postsurgical complication. D/ / 04/22/2018 08:54:53 Rich Prieto MD / saulo Interpreting Provider: Rich Prieto MD - Patient Status Disposition: Home, Self-Care Condition: Good Functional capacity at discharge: uses cane/walker Overall status at discharge: patient is back to baseline - Discharge Instructions Additional Instructions: Discharge Instructions: Total Knee Replacement Please call [facility] ([phone]), your Primary Care Physician, or report to the Emergency Room if you have any of the following symptoms: Nausea, vomiting, fever greater that 101.5, swelling, chest pain, shortness of breath, increased pain/redness/drainage/odor for your incision site, numbness/tingling, or any other concerning symptoms. ACTIVITY:Weight-bearing as tolerated. You may progress off support (crutches or walker) as tolerated. Incentive Spirometer 10 times an hour. MEDICATIONS: Upon discharge resume your home medications. Take all the medications as prescribed. Take a stool softener if taking narcotic pain medications. Stool softeners are only effective if you drink enough fluids. Drink 6-8 glass of water or fluids a day, unless this is not allowed for another health problem. Despite using stool softeners, if you haven't had a bowel movement in 3 days, please switch to a gentle laxative. Gentle laxatives are sold over the counter. You should have a bowel movement within 24 hours, if not call the office. You will be discharged from the hospital with a prescription for pain medication. You are encouraged to decrease the use of narcotic pain medication as tolerated. Should you require a refill, please call the office. [facility] prescribes narcotic pain medication for only 4-6 weeks after surgery. If you require pain medication beyond this time period, you may be referred to your Primary Care Physician or to the Pain Clinic for further evaluation. Plan ahead for refills on pain medication as many narcotics either need to be picked up at the office or mailed. It is best to call 48-72 hours in advance of needing a prescription refill so you don't run out of medication. To help control the post-operative pain, you may take NSAIDs (Aleve,Advil, Motrin, Ibuprofen, Naprosyn) or Tylenol as prescribed on the bottle in addition to the pain medication. ANTICOAGULATION (blood thinners): Continue your Aspirin, Lovenox or Coumadin as prescribed to help prevent a blood clot in the leg or in the lungs. As long as your incision remains dry and you tolerate the NSAIDs (Aleve, Advil, Motrin, ibuprofen, naprosyn), it is OK to use the NSAIDS while you are taking your anticoagulation medication. Should your incision start to drain, stop the NSAID and contact our office. Common symptoms of blood clot in the legs include: localized pain, swelling, calf tenderness, redness or discoloration of the skin. Blood clot in the lung symptoms include: shortness of breath, rapid pulse, sweating, and chest pain that worsens with deep breathing, coughing up blood, lightheadedness, feelings of anxiety. If you experience any of these symptoms notify your physician immediately, go to the emergency room, or if having trouble breathing, call 911. WOUND CARE: Leave the dressing on for 7 to 10days. You may change the dressing if it becomes saturated greater than 50%. Do not get the dressing wet at anytime. Wash your hands with antibacterial soap, rinse and dry prior to any wound care. If you have francisco the visiting nurse or rehab facility can remove the stapes 10-14 days after surgery and place steri-strips across the wound. Leave the steri-strips in place until they fall off on their won. You may let water from the shower run on top of the steri-strips. If you do not have a visiting nurse or rehab facility, you will need to return to the office at 10-14 days for the francisco to be removed. If you have itching or redness around the dressing call the office. FOLLOW-UP: Please follow up with your surgeon in the orthopedic clinic in 4 weeks from the day of surgery. If you have francisco that need to be removed, you will need to come back to the office in 10-14 days from the day of surgery. - Diet and Activity Activity: as per physical therapy Diet: advance to your usual diet
--- NOTE | 2018-04-21 11:14 | Anesthesia Evaluation PreOp ---
Date of Encounter: 04/21/18 Time of Encounter: 13:22 - Past History Planned Operation: Left Total Knee Arthroplasty Cardiac History: Arrhythmia (H/O A-Fib---on eliquis, last dose taken 04/18/2018 at 0800), Pacemaker/ICD ([employer] pacemaker) Pulmonary History: Denies Any Significant HX, Snore HEAVY LIFT RIGGER History: Denies Any Significant HX Other Medical History: GERD, Other (hemochromatosis) Anesthesia History: No Prior Anesthetic Complications, Past Anesthesia Alcohol Use: none Drug use: none Medications and Allergies Apixaban [Eliquis] 5 mg PO BID 09/12/15 [History] Glucosamine HCl/Chondr Jones A Na [[facility] Glucosamine-Chondr Tablet] 1 each PO DAILY 09/12/15 [History] Omeprazole [PriLOSEC] 20 mg PO DAILY 09/12/15 [History] OxyCODONE Immed Rel [Roxicodone 5 MG] 5 mg PO Q6HR PRN 7 Days #28 tablet 03/12/17 [Rx] Acetaminophen [Tylenol] 650 mg PO Q6HR PRN 03/13/17 [History] Docusate [Colace] 100 mg PO BID 10 Days #20 capsule 04/21/18 [Rx] OxyCODONE Immed Rel [Roxicodone 5 MG] 5 mg PO Q6HR PRN 7 Days #28 tablet 04/21/18 [Rx] Allergy/AdvReac Type Severity Reaction Status Date / Time No Known Allergies Allergy Verified 04/04/18 09:04 - Meds/Allergy Pre-op Review Medications Reviewed: Yes Allergies Reviewed: Yes Beta Blockers on Current Med List: No Anesthesia Results - Labs Laboratory Tests 04/04/18 04/04/18 04/04/18 09:38 09:38 09:38 WBC 6.3 Hgb 13.6 Hct 41.8 Plt Count 210 PT 12.5 H INR 1.1 APTT 31.3 Sodium 140 Potassium 3.9 BUN 13 Creatinine 0.59 L - Imaging EKG: report reviewed (04/04/2018 ELECTRONIC VENTRICULAR PACEMAKER ABNORMAL RHYTHM ECG) Additional studies: 02/14/2016 Echo Impressions: Normal LV chamber size, wall thickness, and systolic function. LVEF 55-60%. Indeterminate diastolic function. Normal right ventricular structure and function. A device lead was visualized in the right atrium and right ventricle. Severely dilated left atrium. Severely dilated right atrium. Mild mitral regurgitation. Mild tricuspid regurgitation. No evidence of pulmonary hypertension. Anesthesia Exam O2 Sat Height 1.63 m Weight 81.647 kg O2 Sat by Pulse Oximetry 98 Vital Signs Temp Pulse Resp BP Pulse Ox 97.4 F L 70 18 157/80 98 04/21/18 13:40 04/21/18 13:40 04/21/18 13:40 04/21/18 13:40 04/21/18 13:40 Height: 5'4'' Weight: 180 lbs NPO (# of Hours): 8 Pain Scale: 0 Pain Scale Used: Numeric (1 - 10) - HEENT Pupil (Motor): EOMI Mallampati: II Teeth: Normal Oral Opening: Greater than 3 - HEAVY LIFT RIGGER LOC: Oriented HEAVY LIFT RIGGER Motor: Normal RUE, Normal LUE, Normal RLE, Normal LLE, Normal Face HEAVY LIFT RIGGER Sensory: Normal: RUE, LUE, RLE, LLE, Face - Cardiac Rhythm: Regular Murmur: None - Pulmonary Breath Sounds: bilateral Clear Respiratory Effort: Symmetrical Anesthesia Assess/Plan ASA Score: 3 Level of consciousness: Cooperative, Oriented, Tranquil Anesthetic Plan: General, Regional Nerve Block Regional Nerve Block Plan: Adductor canal Reason for No Neuroaxial/Regional Block: Patient refusal Monitoring Plan: Standard Monitors Recovery Plan: PACU
[2018-04-21] MEDS ORDERED: Dexamethasone 4 MG/ML VIAL ONE ×2 (13:34→16:12)
[2018-04-21] MEDS ORDERED: Ondansetron 4 MG/2 ML VIAL ONE (13:34)
[2018-04-21] MEDS ORDERED: Lidocaine -MPF 2% 2 ML VIAL ONE (13:34)
[2018-04-21] MEDS ORDERED: *HR* FentaNYL (PF) 100 MCG/2 ML VIAL ONE ×2 (13:34→15:49)
[2018-04-21] MEDS ORDERED: Propofol 500 MG/50 ML INFUS..BTL ONE (13:35)
[2018-04-21] MEDS ORDERED: CeFAZolin Syr 2,000MG/20 ML 2,000 MG/20 ML SYRINGE IVPB ONE (13:39)
[2018-04-21] MEDS ORDERED: Ringers Solution, Lactated 1,000 ML IVC SCH ×2 (13:45→19:34)
--- NOTE | 2018-04-21 14:01 | History & Physical Report ---
Date of Encounter: 04/21/18 Time of Encounter: 14:01 24 Hour HP Update - Instructions Instructions: If the History and Physical is less than 30 days old and was completed prior to A.M. admission and or procedure and has NOT been updated on calendar day of procedure please complete this update prior to performing procedure. - Update Patient reports changes in Medical Condition: No Changes in examination, assessment, or condition: No Changes in Medication: No Preop tests/diagnostics Reviewed: Yes Surgery Remains Indicated: Yes Consent for Planned Operative Procedure(s) Verified: Yes - Pre-Operative Checklist Preoperative Checklist Indicated: No Prophylactic Antibiotic Ordered: Yes Is VTE Prophylaxis Indicated?: Yes
[2018-04-21] MEDS ORDERED: *HR* OxyCODONE Immed Rel 5 MG TABLET PO PRN ×2 (14:10→19:34)
[2018-04-21] MEDS ORDERED: ROPIVACAINE HCL/PF 0.5% 30 ML VIAL ONE (14:25)
[2018-04-21] MEDS ORDERED: Ethanol\\Acetic Acid\\Na Ace\\Ben 1,000 ML IRRIG.SOLN IR ONE (14:36)
--- NOTE | 2018-04-21 15:08 | Anesthesia Procedures ---
Date of Encounter: 04/21/18 Time of Encounter: 15:04 Procedures: Anesthesia - Nerve Block Procedure Date: 04/21/18 Time: 15:04 Allergies/Adv Reactions: NKDA Surgical Procedure: L Total Knee Revision Femur Poly Exchange Checklist: Correct Patient Identifier, Correct procedure, History checked Correct side: Left Blood Thinner: No Monitor Applied: EKG, BP, Pulse Oximetry Supplemental Oxygen via Nasal Cannula (L/min): 2 Sedation: Versed (mg): 0 Sedation: Fentanyl (mcg): 50 Indication: Post Op Analgesia Pre-op Neuro Deficits: No Block Type: Other (Adductor Canal Block) Catheter placed: No Sterile Technique: Yes Ultrasound used: Yes Anatomy identified: Yes Visual spread of Local: Yes Neuro Stimulation: No Blood on Needle Aspiration: No Smooth Injection of Local: Yes Pain with Injection of Local: No Prep: Chlorhexadine Needle: 21 x 100 mm Stimuplex Local: Ropivacaine (30mL 0.5% Ropivacaine with 8mg Decadron) Number of Attempts: 1 Complications: None/effective block Vitals: Vital Signs/O2 Sat/Glucose, Most Recent Temp Pulse Resp BP Pulse Ox 97.4 F L 70 18 161/73 98 04/21/18 14:00 04/21/18 14:59 04/21/18 14:59 04/21/18 14:59 04/21/18 14:59
[2018-04-21] MEDS ORDERED: Total Joint Mixture (50 ml) IR ONE (15:30)
[2018-04-21] MEDS ORDERED: Tranexamic Acid 1,000 MG/10 ML VIAL ONE (16:14)
--- NOTE | 2018-04-21 16:39 | Orthopedic Operative Note ---
Date of procedure: 04/21/18 Pre-op diagnosis: Aseptic loosening femoral component left total knee Post-op diagnosis: same (Mid flexion instability) Procedure: Procedure: Left total knee revision femoral component Estimated blood loss: 100 cc Hardware: Metal and polyethylene replacement Urvashi: Femoral component: Size 3 left, poly-constrained: TS size 11 Exam Under anesthesia: Full flexion full extension well-healed incision no swelling or erythema mid flexion varus valgus instability Procedural Notes: Loosening of femoral component Operative procedure: The patient was brought to the operating room and placed on the operating room table. After general anesthesia was administered the operative knee was examined. Findings were noted in the exam under anesthesia. The operative extremity was prepped and draped in sterile surgical fashion. The patient received IV antibiotics prior to skin incision. A standard midline incision was made centered over the patella. The incision was made through the skin and subcutaneous tissue through the old incision. A medial parapatellar tendon approach was performed. Care was taken to preserve tissue along the medial aspect of the patella. And to protect the patella tendon. The deep MCL was released off the medial tibia. The infra patella fat pad was excised. Cultures were obtained as well as Gram stain. Patient had scar tissue excised. The knee was brought into flexion the tibial poly-was removed. Based on the bone scan the femoral component was loose, it was removed with minimal effort with an osteotome and mallet. There was no loss associated with femoral component removal. The tibial component felt well fixed and did not have increased activity on bone scan. The size 3 trial was seated and had good fit and fixation. The knee had good stability with an 11 TS Earnestine. The knee sat for 1 minute with an antibacterial solution after the trials were removed, local was injected 50 mL into the capsule medial and lateral. The femoral component was then cemented and the 11 TS Earnestine was seated and secured. The knee had excellent patella tracking. The knee was brought into full extension during closure. After the cement hardened the knee was irrigated out again. The PA close the knee. The extensor mechanism was closed with a running #2 Fiberwire suture and a running #2 PDS suture. The deep tissue was irrigated and closed deep with #1 PDS suture superficially with 0 PDS suture. The skin was closed with Dermabond and skin francisco. The patient was placed in a sterile dressing and postoperative brace. They were extubated and transferred to recovery room in stable condition. Anesthesia: GETA Surgeon: Luis Alberto Cedeño Was there an trade sales assistant present: Yes Fuel Assembler: Roberta Sheldon Estimated blood loss (cc): 100 Condition: stable Disposition: PACU
[2018-04-21] MEDS: *HR* HYDROmorphone (PF) 1 MG/ML SYRINGE IVP PRN ×2 (17:14→17:19)
[2018-04-21 17:26] LABS: Hematocrit 38.7 % (35.3-44.9)
[2018-04-21] MEDS ORDERED: *HR* Enoxaparin 30 MG/0.3 ML SYRINGE SQ SCH (18:00)
--- NOTE | 2018-04-21 18:47 | Anesthesia Evaluation Post Op ---
Date of Encounter: 04/21/18 Time of Encounter: 18:45 - Vital Signs Vital Signs: Vital Signs/O2 Sat/Glucose, Most Recent Temp Pulse Resp BP Pulse Ox 97.9 F 70 16 141/69 97 04/21/18 18:37 04/21/18 18:37 04/21/18 18:37 04/21/18 18:37 04/21/18 18:37 - Lungs Lungs: Clear Ascult./Percussion - Airway Airway: Non-obstructed - Cardiovascular Regular Rate - Mental Status Mental Status: Alert & Oriented, Answers Appropriately - Pain Pain Scale: 3 Pain Scale used: Numeric (1 - 10) - Nausea Vomiting Nausea Vomiting: Responds to treatment with IV Meds - Hydration Hydration: Ice chips - Discharge PostOp Status: Transfer Patient to floor
[2018-04-21] MEDS ORDERED: Acetaminophen IV 1,000 MG/100 ML INFUS..BTL IVPB SCH (19:34)
[2018-04-21] MEDS ORDERED: *HR* OxyCODONE/APAP 5/325 TABLET PO PRN (19:34)
[2018-04-21] MEDS ORDERED: Temazepam 15 MG CAPSULE PO PRN (19:34)
[2018-04-21] MEDS ORDERED: *HR* Promethazine 25 MG/ML VIAL IVP PRN (19:34)
[2018-04-21] MEDS ORDERED: Ondansetron 4 MG/2 ML VIAL IVP PRN (19:34)
[2018-04-21] MEDS ORDERED: MOM Conc 10 ML UD.LIQ PO PRN (19:34)
[2018-04-21] MEDS ORDERED: Naloxone 0.4 MG/ML INJ IVP PRN (19:34)
[2018-04-21] MEDS ORDERED: traMADol 50 MG TABLET PO PRN (19:34)
[2018-04-21] MEDS ORDERED: Sennosides 8.6 MG TABLET PO PRN (19:34)
[2018-04-21] MEDS: Apixaban 5 MG TABLET PO SCH (20:01)
[2018-04-21] MEDS: Ascorbic Acid 500 MG TABLET PO SCH (20:01)
[2018-04-22 03:51] LABS: Hemoglobin 12.1 g/dL (11.5-15.4)
[2018-04-22 04:12] LABS: BUN/Creatinine Ratio 23 (6-26); Blood Urea Nitrogen 13 mg/dL (8-23); Calcium 8.7 mg/dL (8.6-10.3); Carbon Dioxide 23 mEq/L (23-29); Chloride 103 mEq/L (98-107); Glucose 161 mg/dL (70-105); Osmolality,Calculated 284 (280-300); Potassium 4.3 mEq/L (3.5-5.1); Sodium 135 mEq/L (136-145); eGFR For Non-African Americans > 60 (> 60)
[2018-04-22] MEDS ORDERED: Acetaminophen IV 1,000 MG/100 ML INFUS..BTL IVPB SCH (06:00)
--- NOTE | 2018-04-22 06:41 | Orthopedics Progress Note ---
Date of Encounter: 04/22/18 Time of Encounter: 06:41 Subjective Interval history: Patient was seen this morning doing well without complaints. Afebrile vital signs stable. Operative extremity: Neurovascularly intact Dressing clean dry and intact Calves nontender Assessment and plan: Continue with postoperative care Hematocrit 36 Objective Vital signs: Vital Signs Temp Pulse Resp BP Pulse Ox 04/22/18 04:24 97.5 F L 71 16 123/76 95 04/22/18 03:03 97.7 F 04/22/18 00:45 97.5 F L 04/21/18 23:44 96.9 F L 69 16 122/74 98 04/21/18 22:45 97.5 F L 04/21/18 22:15 96.4 F L 76 14 146/82 99 04/21/18 21:15 96.4 F L 70 14 144/68 98 04/21/18 20:15 96.4 F L 70 14 158/88 98 04/21/18 19:45 97.1 F L 70 11 151/82 96 04/21/18 18:57 97.7 F 70 16 149/70 96 04/21/18 18:47 70 16 150/72 97 04/21/18 18:37 97.9 F 70 16 141/69 97 04/21/18 18:27 70 16 140/67 97 04/21/18 18:17 97.5 F L 70 16 144/72 96 04/21/18 18:07 70 14 138/57 99 04/21/18 17:57 97.8 F 70 16 146/64 98 04/21/18 17:47 70 14 132/57 98 04/21/18 17:37 97.5 F L 70 16 141/64 98 04/21/18 17:27 70 16 150/57 94 04/21/18 17:17 98.1 F 70 18 145/72 94 04/21/18 17:07 70 16 125/95 95 04/21/18 16:57 97.4 F L 70 16 139/71 94 04/21/18 15:23 70 143/62 99 04/21/18 15:05 70 16 151/68 96 04/21/18 14:59 70 18 161/73 98 04/21/18 14:00 97.4 F L 70 18 157/80 98 04/21/18 13:40 97.4 F L 70 18 157/80 98 Intake and Output 04/21/18 04/21/18 04/22/18 15:59 23:59 07:59 Intake Total 250 / 250 Output Total 700 / 700 300 / 300 Balance -700 / -700 -50 / -50 Intake: IV Fluids 200 / 200 Ofirmev 1,000 mg/100 ml 1,000 100 / 100 mg In 100 ml @ 400 mls/hr IVPB Q6H ANNEL Rx#:[id number] Ancef 2,000 MG In 0.9 % Sodium 100 / 100 Chloride 100 ML @ 200 mls/hr IVPB Q8HR ANNEL Rx#:[id number] Oral 50 / 50 Output: Urine 600 / 600 300 / 300 Estimated Blood Loss 100 / 100 Other: # Voids 1 Weight 81.647 kg 83 kg Patient Weight 04/22/18 23:59 Weight 83 kg - Labs CBC & BMP: 04/22/18 03:23 04/22/18 03:23 Labs: Abnormal lab results Sodium 135 mEq/L (136-145) L 04/22/18 03:23 Creatinine 0.57 mg/dL (0.60-1.20) L 04/22/18 03:23 Glucose 161 mg/dL (70-105) H 04/22/18 03:23 - VTE Documentation of Mechanical Device: Venous foot pump, device Consult Discharge Plan - Plan Referrals: Stephen Tovar DO [Primary Care Provider] -
[2018-04-22] MEDS: Multivit/Ca/Min/Fe/FA 1 TAB TABLET PO SCH (09:10)
[2018-04-22] MEDS: Apixaban 5 MG TABLET PO SCH ×2 (09:10→20:30)
[2018-04-22] MEDS: Ascorbic Acid 500 MG TABLET PO SCH ×2 (09:10→16:48)
--- NOTE | 2018-04-22 16:33 | Event Note ---
Date of Encounter: 04/22/18 Time of Encounter: 13:20 PCR - POD#1 left TKR revision femoral component 04/21/18 Patient seen at bedside, without complaints. A&O x 3 Afebrile, vital signs stable. Dressings had small amount bloody drainage midline but appears old, will continue to monitor. Labs reviewed. H/H - 12.1/36.0 stable, asymptomatic Pain control: adequate Participating in PT. All questions and concerns addressed. Educated on use of incentive spirometer. Encouraged ambulation and proper hydration. Patient educated on post-operative restrictions and post-operative care. Assessment and plan: Continue with postoperative care Discharge plan: plan to DC home tomorrow
[2018-04-22] MEDS: Acetaminophen IV 1,000 MG/100 ML INFUS..BTL IVPB SCH (21:35)
[2018-04-23] MEDS ORDERED: Acetaminophen IV 1,000 MG/100 ML INFUS..BTL IVPB SCH
[2018-04-23] MEDS: Acetaminophen IV 1,000 MG/100 ML INFUS..BTL IVPB SCH ×2 (03:13→08:28)
[2018-04-23 05:17] LABS: Hematocrit 35.4 % (35.3-44.9)
[2018-04-23 05:27] LABS: BUN/Creatinine Ratio 29 (6-26); Blood Urea Nitrogen 17 mg/dL (8-23); Calcium 8.9 mg/dL (8.6-10.3); Carbon Dioxide 23 mEq/L (23-29); Chloride 109 mEq/L (98-107); Glucose 113 mg/dL (70-105); Osmolality,Calculated 290 (280-300); Potassium 3.9 mEq/L (3.5-5.1); Sodium 139 mEq/L (136-145); eGFR For Non-African Americans > 60 (> 60)
--- NOTE | 2018-04-23 06:47 | Orthopedics Progress Note ---
Date of Encounter: 04/23/18 Time of Encounter: 06:47 Subjective Interval history: Patient was seen this morning doing well without complaints. Afebrile vital signs stable. Operative extremity: Neurovascularly intact Dressing clean dry and intact Calves nontender Assessment and plan: Continue with postoperative care Hematocrit 35 dc today Objective Vital signs: Vital Signs Temp Pulse Resp BP Pulse Ox 04/23/18 04:40 97.4 F L 70 17 153/86 99 04/22/18 23:41 97.4 F L 70 16 118/72 97 04/22/18 18:01 97.8 F 84 16 109/70 95 04/22/18 15:27 97.8 F 70 14 106/69 96 04/22/18 10:39 98.0 F 70 14 110/70 96 Intake and Output 04/22/18 04/22/18 04/23/18 15:59 23:59 07:59 Intake Total 660 / 660 390 / 390 150 / 150 Balance 660 / 660 390 / 390 150 / 150 Intake: IV Fluids 100 / 100 100 / 100 Ofirmev 1,000 mg/100 ml 1,000 100 / 100 100 / 100 mg In 100 ml @ 400 mls/hr IVPB Q6H ANNEL Rx#:[id number] Oral 660 / 660 290 / 290 50 / 50 Other: Meal Lunch Dinner Percent of Meal Consumed 30% 100% # Voids 1 1 Weight 84.5 kg Patient Weight 04/23/18 23:59 Weight 84.5 kg - Labs CBC & BMP: 04/23/18 04:55 04/23/18 04:55 Labs: Abnormal lab results Chloride 109 mEq/L (98-107) H 04/23/18 04:55 Creatinine 0.58 mg/dL (0.60-1.20) L 04/23/18 04:55 BUN/Creatinine Ratio 29 (6-26) H 04/23/18 04:55 Glucose 113 mg/dL (70-105) H 04/23/18 04:55 - VTE Documentation of Mechanical Device: Venous foot pump, device Consult Discharge Plan - Plan Referrals: Stephen Tovar DO [Primary Care Provider] -
[2018-04-23] MEDS: Multivit/Ca/Min/Fe/FA 1 TAB TABLET PO SCH (08:33)
[2018-04-23] MEDS: Ascorbic Acid 500 MG TABLET PO SCH (08:33)
[2018-04-23] MEDS: Apixaban 5 MG TABLET PO SCH (08:33)
[2018-04-23 12:36] VITALS: BP 143/82
== END 2018-04-23 15:12 | disposition home or self-care (01) | DRG 468 ==
LOC: SAMDAY 13:23 → 3NENU 19:32
PROVIDERS: ADMIT Orthopaedic Surgery; ATTEND Orthopaedic Surgery

== ENCOUNTER 2018-06-13 17:05 | Observation (INO) ==
--- NOTE | 2018-06-13 17:34 | Emergency Department Note ---
Disposition Clinical Impression: Chest pain Qualifiers: Chest pain type: unspecified Qualified Code(s): R07.9 - Chest pain, unspecified Disposition: Admitted As Inpatient Condition: Fair General Adult HPI - General Chief complaint: ED Chest Pain Stated complaint: CP Time Seen by Provider: 06/13/18 17:14 Nursing Notes Reviewed: Yes Vital Signs Reviewed: Yes - History of Present Illness HPI Narrative: Presents with chest pain which began last night as a feeling of indigestion which is both sharp and dull epigastric and lower chest with radiation to the back and increased with swallowing. She does have associated diaphoresis and dy spnea. There is no pleuritic aspect although she did have surgery on her left knee one month ago. She did see her molder fitting today for evaluation of the pacemaker but did not mention the chest discomfort symptoms. She initially attributed this to indigestion because she did make some actually 2 days ago and then did have leftovers today and her had some indigestion 2 days ago. Social history: No smoking or alcohol. No history of heart disease besides atrial fibrillation - Related Data Home Medications Medication Instructions Recorded Confirmed RX: Apixaban [Eliquis] 5 mg PO BID 09/12/15 06/13/18 RX: Glucosamine HCl/Chondr Jones A Na 1 each PO DAILY 09/12/15 06/13/18 [[facility] Glucosamine-Chondr Tablet] RX: Acetaminophen [Tylenol] 650 mg PO Q6HR PRN 03/13/17 06/13/18 Esomeprazole Magnesium [Nexium] 20 mg PO DAILY 06/13/18 06/13/18 Allergies Allergy/AdvReac Type Severity Reaction Status Date / Time No Known Allergies Allergy Verified 04/21/18 14:16 Review of Systems: Constitutional: No fever Vision: No blurred vision ENT: No rhinorrhea Respiratory: No cough Allergic: No allergies : No blood in urine GI: No blood in stool Hematologic: No bruising Dermatologic: No skin rash Musculoskeletal: No pain in the extremities Neuro: No numbness of the extremities Past Medical History - Past Medical History Medical history: Reports: atrial fibrillation, other Surgical history: Reports: breast surgery, cholecystectomy, knee replacement, orthopedic, other, pacemaker/AICD, other Psychiatric history: Reports: depression - Social History Smoking Status: Never smoker Smokeless Tobacco Status: No Alcohol use: Reports: none Drug use: Reports: none Physical Exam CONSTITUTIONAL: Well-appearing; well-nourished; A&O X 3, in no apparent distress HEAD: Normocephalic; atraumatic EYES: PERRL, no scleral icterus NOSE: The nose is normal in appearance without rhinorrhea NECK: No JVD or distended neck veins RESP: Normal chest excursion with respiration; breath sounds clear and equal bilaterally; no wheezes, rhonchi, or rales CARD: Regular rhythm, without murmurs, rub or gallop ABD: Non-distended; non-tender, soft, without rigidity, rebound or guarding,no pulsatile mass CHEST: No pain with palpation SKIN: Normal for age and race; warm and dry without diaphoresis ; no apparent lesions EXTREMITIES: Pulses are 2 plus and equal times 4 extremities, no peripheral edema or calf muscle pain Course Vital Signs Temperature 97.6 F 06/13/18 17:21 Pulse Rate 74 06/13/18 17:21 Respiratory Rate 18 06/13/18 17:21 Blood Pressure 160/84 06/13/18 17:21 O2 Sat by Pulse Oximetry 99 06/13/18 17:21 Temperature 97.5 F L 06/13/18 22:38 Pulse Rate 70 06/13/18 22:38 Respiratory Rate 16 06/13/18 22:38 Blood Pressure 163/77 06/13/18 22:38 O2 Sat by Pulse Oximetry 97 06/13/18 22:38 Oxygen Delivery Oxygen Delivery Room Air Medical Decision Making - [facility] Narrative Medical decision making narrative: the patient will have labs including troponin as well as chest x-ray and monitoring and will be admitted for further evaluation of cardiac disease. Results pending. She is bright and alert and well in appearance in the room. 173 I did review the patient's EKG showing a paced rhythm with a rate of 72 1738 I did review the patient's test results and the patient has had intermittent pain lasting 15 or 20 minutes at a time which could be ischemia as opposed infarction or even with a negative troponin I am concerned about her in addition the fact that she does have associated diaphoresis, dyspnea or radiation to the jaw also concerning findings. I did speak with the family and initially patient wanted to go home I spoke with her further and then she change her mind and said that she would stay. She was monitored. We do have somewhat limited ability to make diagnoses based on her EKG as she does have a pacemaker. The patient does have some abdominal bloating and the feels that this is likely the etiology of her symptoms and wears this certainly could be with her symptoms of diaphoresis, dyspnea, chest pain and radiation to the jaw we do need to exclude cardiac etiology. I did speak with the hospitalist doctor who is except the patient for admission. 2030 - Medical Records Medical records reviewed: Yes I reviewed the patient's medical records. - Lab Data Lab results reviewed: Yes I reviewed the patient's lab results. Result diagrams: 06/13/18 17:38 06/13/18 17:40 Lab Results 06/13/18 06/13/18 06/13/18 Range/Units 17:29 17:38 17:38 WBC 10.9 (4.3-11.1) K/mcL RBC 4.37 (3.82-4.97) M/mcL Hgb 13.7 (11.5-15.4) g/dL Hct 41.2 (35.3-44.9) % MCV 94.3 (83.0-100.0) fL MCH 31.4 (28.0-33.3) pg MCHC 33.3 (31.6-35.5) g/dL RDW 13.2 (11.5-14.5) % Plt Count 251 (140-400) K/mcL MPV 9.5 (9.4-12.4) fL Immature Gran % 0.5 (0-4) % Seg Neutrophils % 64.2 % Lymphocytes % 23.6 % Monocytes % 9.6 % Eosinophils % 1.7 % Basophils % 0.4 % Neutrophils # 7.0 (1.6-8.9) K/mcL Lymphocytes # 2.6 (0.6-4.6) K/mcL Monocytes # 1.0 (0.0-1.3) K/mcL Eosinophils # 0.2 (0.0-0.6) K/mcL Basophils # 0.0 (0.0-0.2) K/mcL Sodium (136-145) mEq/L Potassium (3.5-5.1) mEq/L Chloride (98-107) mEq/L Carbon Dioxide (23-29) mEq/L BUN (8-23) mg/dL Creatinine (0.60-1.20) mg/dL Est GFR ( Amer) (> 60) Est GFR (Non-Af Amer) (> 60) BUN/Creatinine Ratio (6-26) Glucose (70-105) mg/dL Calculated Osmolality (280-300) Calcium (8.6-10.3) mg/dL Total Bilirubin 0.6 (0.3-1.0) mg/dL Direct Bilirubin 0.1 (0.0-0.2) mg/dL Indirect Bilirubin 0.5 (0.0-1.2) mg/dL AST 14 (13-39) Units/L ALT 11 (7-52) Units/L Alkaline Phosphatase 90 (34-104) Units/L Troponin I (< 0.04) ng/mL Serum Total Protein 6.8 (6.4-8.9) g/dL Albumin 3.9 (3.5-5.7) g/dL Globulin 2.9 (2.4-3.5) g/dL Albumin/Globulin Ratio 1.3 (1.1-2.2) Lipase 12 (11-82) Units/L Specimen Rejected Volume 06/13/18 Range/Units 17:40 WBC (4.3-11.1) K/mcL RBC (3.82-4.97) M/mcL Hgb (11.5-15.4) g/dL Hct (35.3-44.9) % MCV (83.0-100.0) fL MCH (28.0-33.3) pg MCHC (31.6-35.5) g/dL RDW (11.5-14.5) % Plt Count (140-400) K/mcL MPV (9.4-12.4) fL Immature Gran % (0-4) % Seg Neutrophils % % Lymphocytes % % Monocytes % % Eosinophils % % Basophils % % Neutrophils # (1.6-8.9) K/mcL Lymphocytes # (0.6-4.6) K/mcL Monocytes # (0.0-1.3) K/mcL Eosinophils # (0.0-0.6) K/mcL Basophils # (0.0-0.2) K/mcL Sodium 141 (136-145) mEq/L Potassium 4.1 (3.5-5.1) mEq/L Chloride 107 (98-107) mEq/L Carbon Dioxide 24 (23-29) mEq/L BUN 25 H (8-23) mg/dL Creatinine 0.93 (0.60-1.20) mg/dL Est GFR ( Amer) > 60 (> 60) Est GFR (Non-Af Amer) 59 L (> 60) BUN/Creatinine Ratio 27 H (6-26) Glucose 135 H (70-105) mg/dL Calculated Osmolality 298 (280-300) Calcium 9.3 (8.6-10.3) mg/dL Total Bilirubin (0.3-1.0) mg/dL Direct Bilirubin (0.0-0.2) mg/dL Indirect Bilirubin (0.0-1.2) mg/dL AST (13-39) Units/L ALT (7-52) Units/L Alkaline Phosphatase (34-104) Units/L Troponin I < 0.03 (< 0.04) ng/mL Serum Total Protein (6.4-8.9) g/dL Albumin (3.5-5.7) g/dL Globulin (2.4-3.5) g/dL Albumin/Globulin Ratio (1.1-2.2) Lipase (11-82) Units/L Specimen Rejected - Radiology Data Radiology results reviewed: Yes I reviewed the patient's radiology results.
[2018-06-13 17:50] LABS: Basophils % 0.4 %; Eosinophils # 0.2 K/mcL (0.0-0.6); Eosinophils % 1.7 %; Hematocrit 41.2 % (35.3-44.9); Hemoglobin 13.7 g/dL (11.5-15.4); Immature Granulocytes % 0.5 % (0-4); Lymphocytes # 2.6 K/mcL (0.6-4.6); Lymphocytes % 23.6 %; Mean Corpuscular HGB Conc 33.3 g/dL (31.6-35.5); Mean Corpuscular Hemoglobin 31.4 pg (28.0-33.3); Mean Corpuscular Volume 94.3 fL (83.0-100.0); Mean Platelet Volume 9.5 fL (9.4-12.4); Monocytes % 9.6 %; Platelet Count 251 K/mcL (140-400); Red Blood Count 4.37 M/mcL (3.82-4.97); Red Cell Distribution Width 13.2 % (11.5-14.5); Segmented Neutrophils % 64.2 %
[2018-06-13 18:10] LABS: Albumin 3.9 g/dL (3.5-5.7); Albumin/Globulin Ratio 1.3 (1.1-2.2); Bilirubin,Direct 0.1 mg/dL (0.0-0.2); Bilirubin,Indirect 0.5 mg/dL (0.0-1.2); Bilirubin,Total 0.6 mg/dL (0.3-1.0); Globulin 2.9 g/dL (2.4-3.5); Total Protein 6.8 g/dL (6.4-8.9)
[2018-06-13 19:38] LABS: Blood Urea Nitrogen 25 mg/dL (8-23); Carbon Dioxide 24 mEq/L (23-29); Chloride 107 mEq/L (98-107); Potassium 4.1 mEq/L (3.5-5.1); Sodium 141 mEq/L (136-145)
[2018-06-13 19:39] LABS: BUN/Creatinine Ratio 27 (6-26); Calcium 9.3 mg/dL (8.6-10.3); Glucose 135 mg/dL (70-105); Osmolality,Calculated 298 (280-300); Troponin I < 0.03 ng/mL (< 0.04); eGFR For Non-African Americans 59 (> 60)
[2018-06-13] MEDS ORDERED: Acetaminophen 325 MG TABLET PO PRN (21:22)
[2018-06-13] MEDS ORDERED: Famotidine 20 MG/2 ML VIAL IVP ONE (21:23)
--- NOTE | 2018-06-13 23:19 | Internal Med History&Physical ---
Date of Encounter: 06/13/18 Time of Encounter: 23:16 Internal Medicine - H&P: HPI Chief complaint: chest pain Admitted From: Home Plans for Post Hospital Care: Home History of present illness: Winter Irizarry is a 78-year-old woman with a history of atrial fibrillation on apixaban and a pacemaker who recently underwent a second total left knee replacement due to aseptic loosening of the prosthesis presenting to the emergency room complaining of discomfort in her upper abdomen and lower chest that started last night with radiation to the back which she thought was secondary to indigestion. It recurred again a few times today and subsequently associated with diaphoresis and dyspnea. She then felt the discomfort radiates to her neck which gave her more concern and prompted her to come to the emergency room. She denies any smoking or alcohol history. No history of coronary artery disease. In the ER she was seen clinically and hemodynamically stable with her EKG showing a paced rhythm. The time of my assessment she was sitting comfortably stating that she no longer had this discomfort. Vitals: Reviewed General: Well-developed white female sitting up in bed in no acute distress. Skin: Warm and supple. HEENT: Moist mucous membranes. No conjunctivae pallor. Neck: No lymphadenopathy. No JVD. No carotid bruits. No palpable thyroid. Chest: Normal thoracic expansion. Normal breath sounds. Clear to auscultation. Heart: Normal S1 & S2; rhythmic. No rubs or murmurs. Abdomen: Non-distended, soft and non-tender to palpation. No peritoneal reaction. Extremities: No clubbing, cyanosis or edema. No calf tenderness. Normal distal pulses. Neurological: Awake, alert and oriented to person, place and time. No focal deficits. Psych: Affect appropriate. Past Med Surg Social Fam HX - Past Medical History Medical history: atrial fibrillation, other Additional medical history: Hemachromotosis. pacemaker interrogated today. right thumb arthrosis. fatigue. leaky heart valve. headaches. depression. rosacea. notalgia parasthetica Psychiatric history: depression - Past Surgical History Surgical History: breast surgery, cholecystectomy, knee replacement, orthopedic, other, pacemaker/AICD, other Additional surgical history: pacemaker 2004,d&c, left knee scope, Left TKR. dilation and curettage. lap cjole poss IOC. nulcelar stress test. Lumpectomy -- breast - Social History Smoking Status: Never smoker Smokeless Tobacco Status: No Alcohol use: none Drug use: none Internal Medicine - H&P: Meds Apixaban [Eliquis] 5 mg PO BID 09/12/15 [History] Glucosamine HCl/Chondr Jones A Na [[facility] Glucosamine-Chondr Tablet] 1 each PO DAILY 09/12/15 [History] Acetaminophen [Tylenol] 650 mg PO Q6HR PRN 03/13/17 [History] Esomeprazole Magnesium [Nexium] 20 mg PO DAILY 06/13/18 [History] Allergy/AdvReac Type Severity Reaction Status Date / Time No Known Allergies Allergy Verified 04/21/18 14:16 All Systems PM: A 10-system review of systems was performed and is negative for pertinent findings except as documented above in the HPI. Family history reviewed and found non-contributory. - Constitutional Vitals: Temp Pulse Resp BP Pulse Ox 97.5 F L 70 16 163/77 97 06/13/18 22:38 06/13/18 22:38 06/13/18 22:38 06/13/18 22:38 06/13/18 22:38 Exam: . Internal Med - H&P Results - Labs CBC & Chem 7: 06/13/18 17:38 06/13/18 17:40 Labs: Short CBC 06/13/18 Range/Units 17:38 WBC 10.9 (4.3-11.1) K/mcL Hgb 13.7 (11.5-15.4) g/dL Hct 41.2 (35.3-44.9) % Plt Count 251 (140-400) K/mcL Neutrophils # 7.0 (1.6-8.9) K/mcL BMP 06/13/18 17:40 Sodium 141 Potassium 4.1 Chloride 107 Carbon Dioxide 24 BUN 25 H Creatinine 0.93 Glucose 135 H Calcium 9.3 Cardiac Enzymes 06/13/18 Range/Units 17:40 Troponin I < 0.03 (< 0.04) ng/mL Liver Function 06/13/18 Range/Units 17:29 Total Bilirubin 0.6 (0.3-1.0) mg/dL Direct Bilirubin 0.1 (0.0-0.2) mg/dL AST 14 (13-39) Units/L ALT 11 (7-52) Units/L Alkaline Phosphatase 90 (34-104) Units/L Albumin 3.9 (3.5-5.7) g/dL - Impressions ITS Impressions Chest X-Ray 06/13/18 17:28 IMPRESSION: 1. No acute pulmonary disease evident. 2. Calcific atherosclerosis aorta. 3. Cardiomegaly. D/ / Shawn Conner / Shawn Conner Interpreting Provider: Shawn Conner - Assessment and Plan (1) Chest pain Current Visit: Yes Status: Acute Assessment and plan: Somewhat atypical however given her age and the presentation, I think observation is warranted. Will monitor on telemetry and trend her enyzmes. Will keep NPO for a stress test to be done in the morning. Qualifiers: Chest pain type: unspecified Qualified Code(s): R07.9 - Chest pain, unspecified (2) Status post total left knee replacement Current Visit: Yes Status: Acute Assessment and plan: Undergoing rehab without issues. (3) GERD (gastroesophageal reflux disease) Current Visit: Yes Status: Chronic Assessment and plan: Will give a dose of famotidine IVP tonight and continue with daily oral PPI. Qualifiers: Esophagitis presence: esophagitis presence not specified Qualified Code(s): K21.9 - Gastro-esophageal reflux disease without esophagitis (4) History of atrial fibrillation Current Visit: Yes Status: Chronic Assessment and plan: Currently rate controlled with pacemaker in situ. Continue apixaban (5) Hemochromatosis Current Visit: Yes Status: Chronic Assessment and plan: Hgb within normal limits. Qualifiers: Hemochromatosis type: unspecified Qualified Code(s): E83.119 - Hemochromatosis, unspecified (6) Obesity (BMI 30.0-34.9) Current Visit: Yes Status: Chronic Assessment and plan: Counseled and educated on therapeutic lifestyle changes for weight loss as it will be of benefit in controlling comorbidities. 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 - Time Spent With Patient Total time spent is greater than 50% in coordination of care (as documented) at patient's floor/unit and/or counseling patient: Greater than 35 minutes
[2018-06-13] MEDS: Apixaban 5 MG TABLET PO SCH (23:23)
[2018-06-14 07:04] VITALS: BP 139/74
[2018-06-14] MEDS ORDERED: Regadenoson 0.4 MG/5 ML SYRINGE IVP ONE (07:10)
[2018-06-14] MEDS: Apixaban 5 MG TABLET PO SCH (12:40)
--- NOTE | 2018-06-14 13:54 | Discharge Summary ---
- NOTES TO OUTPATIENT PROVIDER Notes to Outpatient Provider: Patient was admitted for evaluation of chest pain. Nuclear stress test and echo was done. Nuclear stress test was negative for acute ischemia. Orders not resulted at time of discharge: Pending orders 06/13/18 17:28 ECG 12 lead ECG [ECG] Stat 06/13/18 21:29 NM oumou perf SPECT multi [NM] Routine Date of Encounter: 06/14/18 Time of Encounter: 13:48 - Discharge Diagnosis (1) History of atrial fibrillation Priority: Secondary Status: Chronic (2) GERD (gastroesophageal reflux disease) Priority: Secondary Status: Chronic Qualifiers: Esophagitis presence: esophagitis presence not specified Qualified Code(s): K21.9 - Gastro-esophageal reflux disease without esophagitis (3) Hemochromatosis Priority: Secondary Status: Chronic Qualifiers: Hemochromatosis type: unspecified Qualified Code(s): E83.119 - Hemochromatosis, unspecified (4) Status post total left knee replacement Priority: Secondary Status: Acute (5) Obesity (BMI 30.0-34.9) Priority: Secondary Status: Chronic (6) Chest pain Priority: Primary Status: Resolved Qualifiers: Chest pain type: unspecified Qualified Code(s): R07.9 - Chest pain, unspecified Hospital course: Ms. Irizarry is a 78 year old female with past medical history of atrial fibrillation, status post total left knee replacement who was admitted for evaluation of chest pain. Patient underwent nuclear stress test this morning and had a 2-D echo done. Nuclear stress test was negative for acute perfusion defect. Patient's serial troponins have been negative and patient reports complete resolution of her chest pain. She wishes to be discharged to home at this time. Patient was seen and examined with family present at bedtime.. Patient denies any discomfort at this time. Patient is medically stable for discharge to home with outpatient follow-up with PCP and cardiology. 2-D echo report was reviewed and report was shared with the patient and family. Pt will be discharge to home today. Discharge discussed with: patient, family, nurse - Time Spent with Patient Total time spent providing and/or coordinating discharge services: Time spent: Less than 30 minutes - Discharge Medications Prescriptions: Continue Glucosamine HCl/Chondr Jones A Na [[facility] Glucosamine-Chondr Tablet] 1 each PO DAILY Apixaban [Eliquis] 5 mg PO BID Acetaminophen [Tylenol] 650 mg PO Q6HR PRN PRN Reason: Pain Esomeprazole Magnesium [Nexium] 20 mg PO DAILY Home Medications: Apixaban [Eliquis] 5 mg PO BID 09/12/15 [History] Glucosamine HCl/Chondr Jones A Na [[facility] Glucosamine-Chondr Tablet] 1 each PO DAILY 09/12/15 [History] Acetaminophen [Tylenol] 650 mg PO Q6HR PRN 03/13/17 [History] Esomeprazole Magnesium [Nexium] 20 mg PO DAILY 06/13/18 [History] Allergies/Adverse Reactions: Allergy/AdvReac Type Severity Reaction Status Date / Time No Known Allergies Allergy Verified 04/21/18 14:16 Date of admission: 06/13/18 20:59 Primary care physician: Stephen Tovar Discharging clinician: Bela Fair Anticipated date of discharge: 06/14/18 - Constitutional Vitals: Temp Pulse Resp BP Pulse Ox 97.7 F 70 14 139/74 99 06/14/18 07:03 06/14/18 07:03 06/14/18 07:03 06/14/18 07:03 06/14/18 07:03 Exam: General: No acute distress, AAO x 3, obese HEENT: EOMI, NC/AT, no scleral icterus Respiratory: Clear to auscultate bilaterally, no wheezing, no rales Cardiovascular: Regular, Rate, Rhythm, No murmurs GI: Soft, Non tender, non distended, normal bowel sounds Ext: No edema Neuro: AAO x 3, no focal deficits - Patient Status Disposition: Home, Self-Care Condition: Fair - Discharge Instructions Follow Up With: Stephen Tovar DO [Primary Care Provider] - Additional Instructions: 1. Please follow up with your primary care physician and cardiology within 5 days after your discharge from the hospital 2. Please resume your home medications as prescribed by your primary care physician 3. Please seek medical help immediately if chest pain occurs or if you have difficulty breathing. - Diet and Activity Activity: resume usual activities as tolerated Diet: advance to your usual diet
--- NOTE | 2018-06-18 08:10 | Electrocardiograph Report ---
[address] [address] Test Date: 2018-06-13 Pat Name: Winter Irizarry Department: EXAM1 Room: 2NE19 Gender: F Hand Polisher: : 1940 Requested By: Alfonso Martinez Order Number: [id number] Reading MD: Avi Garcia Measurements Intervals [place] Rate: 72 P: MA: QRS: -59 QRSD: 117 T: 7 QT: 429 QTc: 470 Interpretive Statements Ventricular paced rhythm Electronically Signed On 06-18-2018 8:09:08 EDT by Avi Garcia
== END 2018-06-14 15:09 | disposition home or self-care (01) ==
LOC: EMEROOARM 17:05 → 2NENU 17:05 → SUATTDRO 20:59 → 2NENU 22:26
PROVIDERS: ADMIT Internal Medicine; ATTEND Internal Medicine